=== PATIENT | female | born 1960 | race Caucasian/White ===

== ENCOUNTER 2019-10-30 13:07 | Outpatient (CLI) | payer BC, SELFPAY ==
[2019-10-30 13:44] LABS: Blood Urea Nitrogen 28 mg/dL (7-17); Calcium 9.2 mg/dL (8.4-10.2); Carbon Dioxide 28 mmol/L (22-30); Chloride 100 mmol/L (98-107); Estimated Glomerular Filt Rate > 60; Glucose 110 mg/dL (65-105); Sodium 139 mmol/L (137-145)
== END 2019-10-30 13:08 | disposition home or self-care (01) ==
LOC: ANHSURGERY 13:12
PROVIDERS: Anesthesiology; PCP Internal Medicine; Visit Provider Obstetrics & Gynecology
DX: Z51.81 Encounter for therapeutic drug level monitoring (principal); Z79.899 Other long term (current) drug therapy
CPT/HCPCS: 36415; 80048

== ENCOUNTER 2019-11-08 00:41 | Day surgery (SDC) | payer BC, SELFPAY ==
[2019-10-25 13:05] VITALS: BMI 40.3
--- NOTE | 2019-11-08 09:32 | WPDANESEPPF ---
Anes - Initial Pre Proc Eval Procedure: Operation Date: 11/08/19 13:00 Proposed Procedures p Hysteroscopy, Dilation and Curettage - Walker Saldivar MD Date/Time: 11/08/19 09:32 Surgeon: Walker Saldivar MD Pre Op Diagnosis: Post Menopausal Bleeding Patient Data Age: 59 Gender: F Height: 1.68 m Weight: 113.4 kg Allergies Allergy/AdvReac Type Severity Reaction Status Date / Time bee venom protein (honey bee) Allergy Severe Swelling, Verified 11/08/19 11:28 ITCHING, HYPOTENSION EBONI Inhibitors Allergy Unknown Cough Verified 11/08/19 11:28 APPLES, SOME NUTS, POTATOES, Allergy ITCHY Uncoded 11/08/19 11:28 CARROT THROAT Home Medications Medication Instructions Recorded Confirmed Type epinephrine 0.3 mg/0.3 mL 0.3 mg IM ONCE 08/11/19 10/25/19 History injection, auto-injector amlodipine 2.5 mg PO QPM 10/25/19 10/25/19 History calcium carbonate [Calcium 600] 600 mg PO QPM 10/25/19 10/25/19 History levothyroxine 125 mcg PO QPM 10/25/19 10/25/19 History multivitamin 1 tablet PO QPM 10/25/19 10/25/19 History olmesartan-hydrochlorothiazide 1 tablet PO QPM 10/25/19 10/25/19 History [Benicar HCT] omega 3-omt-qbl-fish oil [Fish Oil] 2 cap PO QPM 10/25/19 10/25/19 History rosuvastatin 20 mg PO QPM 10/25/19 10/25/19 History Patient hx anesthesia problems: none Family hx anesthesia problems: none [facility] Past Medical History Medical History (Updated 08/11/19 @ 11:40 by Niki Weber CMA) Benign essential hypertension BMI 39.0-39.9,adult Encounter for preventive health examination FHx: colon cancer Hearing loss History of angiotensin converting enzyme inhibitor (EBONI-I) allergy Hyperlipidemia Hypothyroidism (acquired) IGT (impaired glucose tolerance) 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 Social History Social History Smoking status: Never smoker Second hand tobacco smoke exposure: No Alcohol intake: never Anes - Eval Final PreProcedure Day of Procedure 11/08/19 09:32 Patient weight: morbidly obese Heart: regular rate and rhythm Lungs: clear to auscultation and normal air movement Airway: Mallampati scale class II Neurological: alert and oriented Last oral intake: >/= 8 hours ASA classification: III Emergent: no Anesthetic plan: proceed Anesthesia type and monitoring: general GIVS and LMA Informed Consent: The patient's anesthetic plan and its attendant risks and benefits were discussed with the patient/family/POA. Questions were solicited and answers provided to the satisfaction of the patient/family/POA.
[2019-11-08 11:08] VITALS: BP 157/92; PULSE 76; RESP 18; TEMP 36.7; O2SAT 100
[2019-11-08] MEDS: LACTATED RINGERS 1,000 ML 30 ML IV CONT (11:30)
--- NOTE | 2019-11-08 13:03 | PM.IMHP ---
H&P: HPI History of Present Illness Chief complaint: Post Menopausal Bleeding Narrative: 59 y/o who had a few episodes of vaginal bleeding starting just before Guille. She has no cramping. Pap was negative in the office. 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 Surgical History Surgical History History of delivery History of eye surgery History of thyroid surgery History of tonsillectomy Status post breast lumpectomy Family History Family History Mother Hypertension Family history of Alzheimer's disease Family history of elevated blood lipids Father Patient's father is Carcinoma of colon Family history of lung cancer Sibling Diabetes mellitus Family history of elevated blood lipids Other Cerebrovascular accident Family history of allergic disorder Family history of cardiovascular disease Family history of osteoporosis Social History Social History Smoking status: Never smoker Second hand tobacco smoke exposure: No Alcohol intake: never Comments Past OB: One , three VBACs. 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 Never took HRT. No history of abnormal pap or STI. Meds Home Medications and Allergies Home Medications Medication Instructions Recorded Confirmed Type epinephrine 0.3 mg/0.3 mL 0.3 mg IM ONCE 08/11/19 10/25/19 History injection, auto-injector amlodipine 2.5 mg PO QPM 10/25/19 10/25/19 History calcium carbonate [Calcium 600] 600 mg PO QPM 10/25/19 10/25/19 History levothyroxine 125 mcg PO QPM 10/25/19 10/25/19 History multivitamin 1 tablet PO QPM 10/25/19 10/25/19 History olmesartan-hydrochlorothiazide 1 tablet PO QPM 10/25/19 10/25/19 History [Benicar HCT] omega 3-utr-vwa-fish oil [Fish Oil] 2 cap PO QPM 10/25/19 10/25/19 History rosuvastatin 20 mg PO QPM 10/25/19 10/25/19 History Allergies Allergy/AdvReac Type Severity Reaction Status Date / Time bee venom protein (honey bee) Allergy Severe Swelling, Verified 11/08/19 11:28 ITCHING, HYPOTENSION EBONI Inhibitors Allergy Unknown Cough Verified 11/08/19 11:28 APPLES, SOME NUTS, POTATOES, Allergy ITCHY Uncoded 11/08/19 11:28 CARROT THROAT Vital Signs Vital Signs - 24 hr 11/08/19 11:08 Temperature 36.7 C Pulse Rate 76 Respiratory Rate 18 Blood Pressure 157/92 H Pulse Oximetry 100 Exam Const: Orientation/consciousness: patient oriented x3 Other: Well-developed, well-nourished female in no acute distress. Neck: Thyroid: thyroid normal Lymphatic: no lymphadenopathy noted (in neck, axilla or inguinal nodes) Resp: Effort & Inspection: normal respiratory effort Auscultation: clear to auscultation bilaterally Cardio: Rate: regular rate Rhythm: regular rhythm Heart sounds: S1 normal heart sound present and S2 normal heart sound present GI: Other: ABD: Soft, nontender, nondistended. No guarding or rebound tenderness. No hepatosplenomegaly. : General: Yes no CVA tenderness Other: External genitalia: normal female hair distribution, without lesion. Urethral meatus: no lesion, non prolapsed. Bladder: no mass, nontender Vagina: atrophic, without lesion or discharge. No cystocele or rectocele. Cervix: no lesion or discharge. Uterus: small, anteverted, freely mobile, nontender Adnexa: no mass or tenderness. Anus/pe
[2019-11-08] MEDS: KETOROLAC 30 MG/ML VIAL (*BKC) IV PUSH (13:44)
--- NOTE | 2019-11-08 13:53 | PM.PROC ---
Procedure Note - Detailed Date of procedure: 11/08/19 Pre-op diagnosis: Post Menopausal Bleeding Post-op diagnosis: same Procedure performed: Hysteroscopy D&C Endometrial polypectomy Description of procedure: The patient was taken to the operating room where she was prepared and draped in the usual sterile fashion in the dorsal lithotomy position. The bladder was drained with a red rubber catheter. A sterile speculum was placed into the vagina. The anterior lip of the cervix was grasped with single-tooth tenaculum. Ten mL of 1% lidocaine was administered in a paracervical block. The cervix was then gently dilated using Hegar dilators until an 8 mm dilator could be passed. Hysteroscopy was performed using sterile saline as a distention medium. Findings are as noted above. A polyp forceps was advanced and several polyps were removed. Sharp curettage was then performed, and endometrial curettings were collected on a Telfa pad and passed off to be sent to pathology. Hemostasis was excellent. Sponge, lap, needle and instrument counts were correct. The patient was awakened and taken to the recovery room in stable condition. I was present and scrubbed through the entire procedure. Implants: None Anesthesia: MAC and local (paracervical block) Surgeon: Walker Saldivar MD Estimated blood loss (mL): 10 Drains: No Packing: No Pathology: yes (Endometrial curettings) Complications: None Disposition: PACU Findings: Multiple large polyps in the endometrial cavity. Both tubal ostia seen.
--- NOTE | 2019-11-08 13:53 | SUR.OPER ---
Hysteroscopy fluid:IVNS:1000CC OUT OF BAG, 1000CC COLLECTED
--- NOTE | 2019-11-08 13:56 | SUR.OPER ---
EBL:10CC
[2019-11-08 14:05] VITALS: BP 131/71; PULSE 75
[2019-11-08 14:35] VITALS: BP 150/81; PULSE 62
--- NOTE | 2019-11-08 14:55 | SUR.PHASEII ---
1450: Contacted Dr. Saldivar to report bleeding. He said he will come and evaluate for himself.
[2019-11-08 15:05] VITALS: BP 159/98; PULSE 64
--- NOTE | 2019-11-08 15:29 | SUR.PHASEII ---
1510 Dr Saldivar came in to evaluate pt; stated she was okay to be discharged
[2019-11-08 15:30] VITALS: BP 150/93; PULSE 63
== END 2019-11-08 15:32 | disposition home or self-care (01) ==
PROVIDERS: PCP Internal Medicine; Visit Provider Obstetrics & Gynecology
PROC: 0U5B8ZZ Destruction of Endometrium, Via Natural or Artificial Opening Endoscopic (ICD-10-PCS; CPT 58563; principal; 2019-11-08 13:00)
DX: C54.1 Malignant neoplasm of endometrium (principal); N95.0 Postmenopausal bleeding; N84.0 Polyp of corpus uteri; I10 Essential (primary) hypertension; E78.5 Hyperlipidemia, unspecified; E03.9 Hypothyroidism, unspecified; R73.02 Impaired glucose tolerance (oral); E66.01 Morbid (severe) obesity due to excess calories; Z68.41 Body mass index [BMI] 40.0-44.9, adult
CPT/HCPCS: 58558; 88305; A9270; J1885; J2250; J2704; J3010; J7030; J7120

== ENCOUNTER 2020-08-07 07:46 | Outpatient (CLI) | payer BC, SELFPAY ==
--- NOTE | ~2020-08-07 | MM_ITS ---
EXAMINATION: MM screening jojo BI w ulices HISTORY: Screening mammogram TECHNIQUE: Craniocaudal and mediolateral oblique 3-D tomosynthesis images were obtained and synthetic 2-D images were generated. Bilateral rotated lateral cc views. CAD analysis was submitted and interp reted. COMPARISON: 12/16/2017 bilateral digital screening mammogram BREAST PARENCHYMAL COMPOSITION: The breasts are heterogeneously dense, which may obscure small masses . FINDINGS: There is a biopsy marker on the left; history of prior bilateral benign breast biopsies. There is a small cluster of grouped microcalcifications in the posterior aspect of the lower outer qu adrant right breast. Diagnostic mammogram with magnification views is recommended. Bilateral mammographic asymmetric densities are noted; bilateral diagnostic mammography compression v iews and bilateral breast ultrasound examination are recommended. IMPRESSION: 1. Right grouped microcalcifications in bilateral mammographic asymmetry densities 2. Recommend bilateral diagnostic mammography and bilateral breast ultrasound examination. BI-RADS Category 0: Incomplete: Needs additional imaging evaluation. Reviewed, dictated and finalized at location A. ODICALS CLERK IMPRESSION: 1. Right grouped microcalcifications in bilateral mammographic asymmetry densit ies 2. Recommend bilateral diagnostic mammography and bilateral breast ultrasound e xamination. BI-RADS Category 0: Incomplete: Needs additional imaging evaluation.
== END 2020-08-07 07:47 | disposition home or self-care (01) ==
LOC: ANHIMG 07:46
PROVIDERS: PCP Internal Medicine; Visit Provider Internal Medicine
DX: Z12.31 Encounter for screening mammogram for malignant neoplasm of breast (principal); R92.8 Other abnormal and inconclusive findings on diagnostic imaging of breast
CPT/HCPCS: 77063; 77067

== ENCOUNTER 2020-09-03 12:28 | Outpatient (CLI) | payer BC, SELFPAY ==
--- NOTE | ~2020-09-03 | MMUS_ITS ---
EXAMINATION: MM diagnostic mammo BI, US breast BI complete HISTORY: Follow-up breast asymmetries and right breast calcifications. TECHNIQUE: Additional 3-D tomosynthesis images of the breasts were performed and synthetic 2-D images were generated. CAD analysis was submitted and interpreted. High resolution bilateral complete breas t ultrasound was performed. COMPARISON: 09/03/2020 BREAST PARENCHYMAL COMPOSITION: The breasts are heterogenously dense, which may obscure small masses. FINDINGS: MAMMOGRAPHIC FINDINGS: There are multiple partially circumscribed masses in both breasts which are partially obscured by fib roglandular tissue there is a cluster of indeterminate calcifications in the mid outer aspect of the right breast.. ULTRASOUND: Right breast ultrasound: There are multiple simple and complicated cysts of the right breast. At 9:00, 6 cm from the nipple, t here is an oval circumscribed hypoechoic mass with parallel orientation, posterior acoustic enhanceme nt and no internal vascularity measuring 10 x 6 x 8 mm, likely benign. At 8:00, 7 cm from the nipple, there is an oval circumscribed hypoechoic mass with slightly heterogeneous internal echotexture. No internal vascularity or posterior features. This mass measures 6 mm maximum dimension. There is a clu ster of cysts at 10:00, 5 cm from the nipple. Left breast ultrasound: At 12:00, 2 cm from the nipple there is a 9 mm oval circumscribed hypoechoic mass with posterior acou stic enhancement, parallel orientation, likely a complicated cyst. At 12:00, 2 cm from the nipple, th ere is a slightly irregular shaped hypoechoic mass measuring 5 x 4 x 4 mm with low-level internal ech oes, posterior acoustic enhancement and no internal vascularity, likely a complicated cyst. At 12:00, 2 cm from the nipple, there is a slightly lobulated hypoechoic mass with echogenic hilum measuring 7 mm maximum dimension, likely an intramammary lymph node. There are additional simple and complicated cysts scattered throughout the left breast. At 2:00, 2 cm from the nipple, there is a slightly irreg ular shaped hypoechoic mass measuring 6 x 5 x 4 mm without posterior features or internal vascularity . At 5:00, 4 cm from the nipple, there is a heterogeneous mass with echogenic hilum measuring 8 mm, l ikely an intramammary lymph node. At 5:00, 2 cm from the nipple, there is an irregular shaped hypoech oic mass with lobulated margins measuring 9 mm maximum dimension. No internal vascularity. IMPRESSION: 1. Abnormal masses of the left breast at 2:00, 2 cm from the nipple and 5:00, 2 cm from the nipple wi th irregular margins. 2. Ultrasound-guided biopsy of left breast lesions described above recommended. 3: Additional likely benign masses are identified in both breasts for which short-term follow-up ultr asound and mammogram is recommended in 6 months. BI-RADS category 4, suspicious findings. Reviewed, dictated and finalized at location A. ICULTURIST IMPRESSION: 1. Abnormal masses of the left breast at 2:00, 2 cm from the nipple and 5:00, 2 cm from the nipple with irregular margins. 2. Ultrasound-guided biopsy of left breast lesions described above recommended. 3: Additional likely benign masses are identified in both breasts for which [facility] rt-term follow-up ultrasound and mammogram is recommended in 6 months. BI-RADS category 4, suspicious findings.
== END 2020-09-03 12:29 | disposition home or self-care (01) ==
PROVIDERS: PCP Internal Medicine; Visit Provider Internal Medicine
DX: R92.8 Other abnormal and inconclusive findings on diagnostic imaging of breast (principal)
CPT/HCPCS: 76641; 77066

== ENCOUNTER 2020-09-17 10:11 | Outpatient (CLI) | payer BC, SELFPAY ==
--- NOTE | ~2020-09-17 | US_ITS ---
US breast LT limited 09/17/2020 12:21 Indication: Left breast masses seen on recent examination. Biopsy recommended. Procedure: High-resolution Limited left breast ultrasound Comparison: 09/03/2020 Findings: At 5:00, 2 cm from the nipple there is a slightly lobulated mass measuring up to 1.0 cm max imum dimension which with real-time examination looks like a cluster of benign microcysts, likely neyda ign. At 2:00, 2 cm from the nipple there is an 8 mm cyst with a smaller cyst adjacent to it along the anterior margin which gives a lobulated appearance. This is benign. Impression: 1: Probable benign simple and complicated cysts of the left breast at 2 and 5:00 o'clock. Short-term follow-up 6 month interval left breast ultrasound recommended to assess stability. BI-RADS CATEGORY 3-PROBABLY BENIGN FINDING RECOMMENDATION: 6 month follow up recommended. Reviewed, dictated and finalized at location A. DRAFTER Impression: 1: Probable benign simple and complicated cysts of the left breast at 2 and 5:0 0 o'clock. Short-term follow-up 6 month interval left breast ultrasound recomme nded to assess stability. BI-RADS CATEGORY 3-PROBABLY BENIGN FINDING RECOMMENDATION: 6 month follow up recommended.
--- NOTE | ~2020-09-17 | MM_ITS ---
MM post biopsy diagnostic RT, MM stereotactic specimen RT, MM stereotactic bx RT EXAMINATION: MM post biopsy diagnostic RT, MM stereotactic specimen RT, MM stereotactic bx RT DATE: Dylan Mobley M.D. INDICATION: Abnormal calcifications in the right breast. Stereotactic core biopsy is requested evalu ate for malignancy.] TECHNIQUE AND FINDINGS: The risks and potential benefits of the procedure were discussed with the patient and written informe d consent was obtained. The patient was placed in the prone position clustered at the table with the right breast in craniocaudal compression, and the area of interest was localized and targeted utiliz ing digital imaging with stereotaxis. After sterile preparation of the skin, 1% lidocaine was utilized for local anesthesia at the skin pun cture site and 1% lidocaine with epinephrine was utilized for deeper local anesthesia/is about the bi opsy site. A 9G MagicEvent vacuum assisted biopsy needle was advanced to the level of the calcification o f interest from a cephalad approach utilizing stereotactic guidance and a total of 6 tissue core biop sies were obtained. A specimen radiograph demonstrates that the calcifications of interest are included within the tissue cores. A tissue marker clip was then placed at the biopsy site. The needle was removed and hemosta sis was achieved. The patient tolerated the procedure well and there is no evidence of significant i mmediate complication. The patient was given verbal as well as written postprocedural instructions p rior to discharge from the department. Tissue cores were submitted to surgical pathology for histolo gic analysis. A 2-view right unilateral digital mammogram was obtained post procedure and this demonstrates that th e tissue marker clip is in expected position.] IMPRESSION: 1. Successful stereotactic biopsy of calcifications in the mid outer aspect of the right breast, fol lowed by tissue marker clip placement. Please refer to pathology report for histologic analysis. Reviewed, dictated and finalized at location A. STANT TRACK COACH IMPRESSION: 1. Successful stereotactic biopsy of calcifications in the mid outer aspect of the right breast, followed by tissue marker clip placement. Please refer to p athology report for histologic analysis. IMPRESSION: 1. Successful stereotactic biopsy of calcifications in the mid outer aspect of the right breast, followed by tissue marker clip placement. Please refer to p athology report for histologic analysis.
== END 2020-09-17 10:12 | disposition home or self-care (01) ==
PROVIDERS: PCP Internal Medicine; Visit Provider Surgery
DX: R92.8 Other abnormal and inconclusive findings on diagnostic imaging of breast (principal)
CPT/HCPCS: 19081; 76642; 77065; 88305; A4648

== ENCOUNTER 2021-04-24 11:55 | Outpatient (CLI) | payer BC, SELFPAY ==
--- NOTE | ~2021-04-24 | MMUS_ITS ---
EXAMINATION: MM diagnostic jojo BI w ulices, US breast LT limited HISTORY: Six-month follow-up for probably benign left breast masses TECHNIQUE: Craniocaudal, mediolateral, and mediolateral oblique 3-D tomosynthesis images of the breas ts were performed and synthetic 2-D images were generated. CAD analysis was submitted and interpreted . High resolution limited left breast ultrasound was performed. COMPARISON: 09/17/2020, 09/03/2020, 08/07/2020, 12/16/2017 BREAST PARENCHYMAL COMPOSITION: The breasts are heterogeneously dense, which may obscure small masses . FINDINGS: MAMMOGRAPHIC FINDINGS: There is no evidence of suspicious mass, calcification, or architectural distortion in either breast malignancy. There has been no suspicious interval change. ULTRASOUND: The previously described masses at the 2:00 and 5:00 locations in the left breast demonstrate interva l decrease in size, consistent with benign findings. No suspicious cystic or solid mass is identified . IMPRESSION: 1. No mammographic or sonographic evidence of malignancy. 2. Recommend routine screening mammography in one year. BI-RADS Category 2: Benign finding(s). Reviewed, dictated and finalized at location A. IMPRESSION: 1. No mammographic or sonographic evidence of malignancy. 2. Recommend routine screening mammography in one year. BI-RADS Category 2: Benign finding(s).
== END 2021-04-24 11:56 | disposition home or self-care (01) ==
LOC: ANHIMG 11:57
PROVIDERS: PCP Internal Medicine; Visit Provider Surgery
DX: R92.8 Other abnormal and inconclusive findings on diagnostic imaging of breast (principal)
CPT/HCPCS: 76642; 77062; 77066; G0279

== ENCOUNTER 2021-04-30 00:49 | Day surgery (SDC) | payer BC, SELFPAY ==
[2021-04-21 14:20] VITALS: BMI 42.0
[2021-04-30 07:43] VITALS: BP 135/83; PULSE 91; RESP 20; TEMP 35.9; O2SAT 100; BMI 42.3
--- NOTE | 2021-04-30 07:46 | WPDANESEPPF ---
Anes - Initial Pre Proc Eval Procedure: Operation Date: 04/30/21 08:30 Proposed Procedures p Screening Colonoscopy - Tone Stringer MD Date/Time: 04/30/21 07:46 Surgeon: Tone Stringer MD Pre Op Diagnosis: family hx of colon ca Patient Data Age: 60 Gender: F Height: 1.68 m Weight: 119 kg Last Vital Signs Temp 35.9 C L 04/30/21 07:43 Pulse 91 04/30/21 07:43 Resp 20 04/30/21 07:43 BP 135/83 04/30/21 07:43 Pulse Ox 100 04/30/21 07:43 Allergies Allergy/AdvReac Type Severity Reaction Status Date / Time bee venom protein (honey bee) Allergy Severe Swelling, Verified 04/30/21 07:42 ITCHING, HYPOTENSION EBONI Inhibitors AdvReac Unknown Cough Verified 04/30/21 07:42 APPLES, SOME NUTS, POTATOES, Allergy ITCHY Uncoded 04/30/21 07:42 CARROT THROAT Home Medications Medication Instructions Recorded Confirmed Type calcium carbonate [Calcium 600] 600 mg PO QPM 10/25/19 04/21/21 History multivitamin 1 tablet PO QPM 10/25/19 04/21/21 History omega 6-llh-jym-fish oil [Fish Oil] 2 cap PO QPM 10/25/19 04/21/21 History amlodipine 5 mg tablet 2.5 mg PO QPM #90 tablet 10/08/20 04/21/21 Rx levothyroxine 125 mcg tablet 125 mcg PO DAILY #90 tablet 10/08/20 04/21/21 Rx olmesartan 40 1 tablet PO QPM #90 tablet 10/08/20 04/21/21 Rx mg-hydrochlorothiazide 12.5 mg tablet rosuvastatin 20 mg tablet 20 mg PO QPM #90 tablet 10/08/20 04/21/21 Rx epinephrine 0.3 mg/0.3 mL 0.3 mg IM ONCE #2 ea 01/28/21 04/21/21 Rx injection, auto-injector Patient hx anesthesia problems: none Family hx anesthesia problems: none PMFSH Past Medical History Medical History (Updated 04/30/21 @ 08:02 by Rupert Simental DO) Abnormal finding of blood chemistry Allergy to EBONI inhibitors Benign essential hypertension BMI 39.0-39.9,adult Body mass index (BMI) 40.0-44.9, adult Breast mass seen on mammogram Colon cancer screening Encounter for preventive health examination Encounter for routine adult health examination without abnormal findings Exposure to COVID-19 virus FHx: colon cancer H/O bee sting allergy Hearing loss History of angiotensin converting enzyme inhibitor (EBONI-I) allergy History of benign breast biopsy History of uterine cancer Hyperlipidemia Hypothyroidism (acquired) IGT (impaired glucose tolerance) Need for shingles vaccine 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 PATRICK (obstructive sleep apnea) Uterine cancer Surgical History Surgical History History of ankle surgery History of delivery History of eye surgery History of hysterectomy History of thyroid surgery History of tonsillectomy Status post breast lumpectomy left breast Family History Family History Mother Hypertension Family history of Alzheimer's disease Family history of elevated blood lipids Father Patient's father is Carcinoma of colon Family history of lung cancer Sibling Diabetes mellitus Family history of elevated blood lipids Grandparent Heart disease Cerebrovascular accident Other Family history of allergic disorder Family history of cardiovascular disease Family history of osteoporosis Social History Social History Smoking status: Never smoker Second hand tobacco smoke exposure: No Alcohol intake: current Alcohol use details: rare Living arrangements: with family 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
--- NOTE | 2021-04-30 07:56 | WPDGICN ---
Assessment and Plan Assessment and plan (1) Colon cancer screening: Code(s): Z12.11 - Encounter for screening for malignant neoplasm of colon Status: Acute (2) Family history of colon cancer in father: Code(s): Z80.0 - Family history of malignant neoplasm of digestive organs Status: Acute Assessment and Plan: Patient's father has had colon cancer. For this reasons surveillance colonoscopy suggested at 5 year intervals. Because of her fecal urgency would advise fiber supplementation hopefully to bulk up her stool sounds. Further recommendations may be given after endoscopy. GI Consult Note Consult date/time: 04/30/21 07:57 HPI: Ronaldo Bolton is a 60 year old female Presents for screening colonoscopy. Her last exam was in 2014. Patient reports that her current weight appetite and bowel movements are normal. She denies any blood in her stools. Family history is significant that her father had colon cancer. Patient reports having had uterine cancer several years ago. She does notice some urgency with bowel movements. Subsequently. Review of Systems Review of Systems: All systems reviewed & are unremarkable except as noted in HPI and below PMFSH Past Medical History Medical History Abnormal finding of blood chemistry Allergy to EBONI inhibitors Benign essential hypertension BMI 39.0-39.9,adult Body mass index (BMI) 40.0-44.9, adult Breast mass seen on mammogram Colon cancer screening Encounter for preventive health examination Encounter for routine adult health examination without abnormal findings Exposure to COVID-19 virus FHx: colon cancer H/O bee sting allergy Hearing loss History of angiotensin converting enzyme inhibitor (EBONI-I) allergy History of benign breast biopsy History of uterine cancer Hyperlipidemia Hypothyroidism (acquired) IGT (impaired glucose tolerance) Need for shingles vaccine On detention drug therapy Uterine cancer Surgical History Surgical History History of ankle surgery History of delivery History of eye surgery History of hysterectomy History of thyroid surgery History of tonsillectomy Status post breast lumpectomy left breast Family History Family History Mother Hypertension Family history of Alzheimer's disease Family history of elevated blood lipids Father Patient's father is Carcinoma of colon Family history of lung cancer Sibling Diabetes mellitus Family history of elevated blood lipids Grandparent Heart disease Cerebrovascular accident Other Family history of allergic disorder Family history of cardiovascular disease Family history of osteoporosis Social History Social History Smoking status: Never smoker Second hand tobacco smoke exposure: No Alcohol intake: current Alcohol use details: rare Living arrangements: with family 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 Spiritual care concerns: No Meds Home Medications and Allergies Home Medications Medication Instructions Recorded Confirmed Type calcium carbonate [Calcium 600] 600 mg PO QPM 10/25/19 04/21/21 History multivitamin 1 tablet PO QPM 10/25/19 04/21/21 History omega 4-vjo-wst-fish oil [Fish Oil] 2 cap PO QPM 10/25/19 04/21/21 History amlodipine 5 mg tablet 2.5 mg PO QPM #90 tablet 10/08/20 04/21/21 Rx levothyroxine 125 mcg tablet 125 mcg PO DAILY #90 tablet 10/08/20 04/21/21 Rx olmesartan 40 1 tablet PO QPM #90 tablet 10/08/20 04/21/21 Rx mg-hydrochlorothiazide 12.5 mg tablet rosuvastatin 20 mg tablet 20 mg PO QPM #90 tablet 10/08/20 04/21/21 Rx epinephrine 0.3 mg/0.3 mL 0.3 mg IM ONCE #2 ea 01/28/21 04/21/21 Rx injection, auto-injector Allergies Allergy/Adv
[2021-04-30] MEDS: LACTATED RINGERS 1,000 ML 150 ML IV CONT (07:59)
[2021-04-30] MEDS: SIMETHICONE ORAL SUSPENSION 20 MG/0.3 ML 30 ML BOTTLE 0.6 ML IRRIGATION (08:42)
[2021-04-30 08:52] VITALS: BP 105/64; PULSE 71; RESP 20; O2SAT 100
[2021-04-30 09:02] VITALS: BP 113/67; PULSE 74; RESP 16; O2SAT 100
[2021-04-30 09:12] VITALS: BP 118/68; PULSE 73; RESP 19; O2SAT 100
== END 2021-04-30 09:24 | disposition home or self-care (01) ==
PROVIDERS: PCP Internal Medicine; Visit Provider Internal Medicine Gastroenterology
PROC: 0DJD8ZZ Inspection of Lower Intestinal Tract, Via Natural or Artificial Opening Endoscopic (ICD-10-PCS; CPT 45378; principal; 2021-04-30 08:30)
DX: Z12.11 Encounter for screening for malignant neoplasm of colon (principal); Z80.0 Family history of malignant neoplasm of digestive organs; K64.8 Other hemorrhoids; K57.30 Diverticulosis of large intestine without perforation or abscess without bleeding; I10 Essential (primary) hypertension; Z85.42 Personal history of malignant neoplasm of other parts of uterus; E78.5 Hyperlipidemia, unspecified; E03.9 Hypothyroidism, unspecified; E66.9 Obesity, unspecified; Z68.41 Body mass index [BMI] 40.0-44.9, adult
CPT/HCPCS: 45378; J2001; J2704; J7120

== ENCOUNTER 2021-12-29 11:10 | Outpatient (CLI) | payer BC, SELFPAY ==
[2021-12-29 11:36] LABS: Alanine Aminotransferase 37 U/L (4-35); Albumin Level 4.2 g/dL (3.5-5.1); Alkaline Phosphatase 55 U/L (38-126); Anion Gap 8 mmol/L (8-16); Aspartate Amino Transferase 35 U/L (14-36); Bilirubin,Total 0.8 mg/dL (0.2-1.3); Blood Urea Nitrogen 21 mg/dL (7-17); Calcium 9.1 mg/dL (8.4-10.2); Carbon Dioxide 27 mmol/L (22-30); Chloride 104 mmol/L (98-107); Cholesterol 125 mg/dL (0-200); Estimated Glomerular Filt Rate > 60; Glucose 113 mg/dL (65-110); HDL Direct 41 mg/dL; Potassium 4.3 mmol/L (3.4-5.0); Sodium 139 mmol/L (137-145); Triglycerides 77 mg/dL (<150)
[2021-12-29 11:47] LABS: LDL Cholesterol Direct 57 mg/dL
[2021-12-29 11:54] LABS: Hemoglobin A1C 5.7 % (<5.7)
[2021-12-31 14:31] LABS: C-Peptide 2.51 ng/mL (0.80-3.85)
[2022-01-01 06:11] LABS: Insulin Level Total 14.7 uIU/mL (<=19.6)
== END 2021-12-29 11:11 | disposition home or self-care (01) ==
PROVIDERS: PCP Internal Medicine; Visit Provider Internal Medicine
DX: R73.02 Impaired glucose tolerance (oral) (principal); Z79.899 Other long term (current) drug therapy; Z68.41 Body mass index [BMI] 40.0-44.9, adult; I10 Essential (primary) hypertension; E78.2 Mixed hyperlipidemia
CPT/HCPCS: 36415; 80053; 80061; 83036; 83525; 84681

== ENCOUNTER 2022-04-05 15:35 | Emergency (ER) | payer BC, SELFPAY ==
--- NOTE | 2022-04-05 15:37 | ED.WOUNDLAC ---
HPI - Wound/Laceration General Chief Complaint: Wound/Laceration Stated Complaint: CHIN LACERATION Time Seen by Provider: 04/05/22 15:50 Source: patient and RN notes reviewed Mode of arrival: ambulatory Limitations: no limitations History of Present Illness HPI narrative: 61-year-old female presents with concern for laceration to her chin. She reports just prior to arrival she tripped, fell and hit her chin on a concrete curb. She denies tooth pain, loose teeth. She reports mild jaw pain. She denies difficulty opening or closing her mouth. Location: face Related Data Home Medications Medication Instructions Recorded Confirmed calcium carbonate 600 mg calcium 600 mg PO QPM 10/25/19 01/02/22 (1,500 mg) tablet (Calcium) multivitamin 1 tablet PO QPM 10/25/19 01/02/22 omega 7-gpv-syt-fish oil 1,000 mg 2 cap PO QPM 10/25/19 01/02/22 (120 mg-180 mg) capsule (Fish Oil) calcium polycarbophil 625 mg 1,250 mg PO BID 06/16/21 01/02/22 tablet (FiberCon) Allergies Allergy/AdvReac Type Severity Reaction Status Date / Time bee venom protein (honey bee) Allergy Severe Swelling, Verified 04/05/22 15:41 ITCHING, HYPOTENSION EBONI Inhibitors AdvReac Unknown Cough Verified 04/05/22 15:41 APPLES, SOME NUTS, POTATOES, Allergy ITCHY Uncoded 04/05/22 15:41 CARROT THROAT Review of Systems Review of Systems: CONSTITUTIONAL: Denies malaise, chills, sweats, or fever. SKIN: Reports laceration to her chin MUSCULOSKELETAL: Denies muscle skeletal pain NEUROLOGIC: Denies numbness, weakness All systems reviewed & are unremarkable except as noted in HPI and below PMFSH Past Medical History Medical History (Updated 04/05/22 @ 16:03 by Jessica Ny NP) Abnormal finding of blood chemistry Allergy to EBONI inhibitors Benign essential hypertension BMI 39.0-39.9,adult Body mass index (BMI) 40.0-44.9, adult Breast cancer screening Breast mass seen on mammogram Colon cancer screening Encounter for preventive health examination Encounter for routine adult health examination without abnormal findings Exposure to COVID-19 virus FHx: colon cancer Fibrocystic changes of left breast H/O bee sting allergy Hearing loss History of angiotensin converting enzyme inhibitor (EBONI-I) allergy History of benign breast biopsy History of uterine cancer Hyperlipidemia Hypothyroidism (acquired) IGT (impaired glucose tolerance) Left breast mass Need for shingles vaccine 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 PATRICK (obstructive sleep apnea) Post-menopausal Post-surgical hypothyroidism Pre-diabetes Seborrheic keratosis Skin tags, multiple acquired Uterine cancer Vitamin D deficiency Surgical History Surgical History History of ankle surgery History of delivery History of eye surgery History of hysterectomy History of thyroid surgery History of tonsillectomy Status post breast lumpectomy left breast Family History Family History Mother Hypertension Family history of Alzheimer's disease Family history of elevated blood lipids Father Patient's father is Carcinoma of colon Family history of lung cancer Sibling Diabetes mellitus Family history of elevated blood lipids Grandparent Heart disease Cerebrovascular accident Other Family history of allergic disorder Family history of cardiovascular disease Family history of osteoporosis Social History Social History Smoking status: Never smoker Second hand tobacco smoke exposure: No Alcohol intake: current Alcohol use details: rare 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 There is no relevant family history pertinent to the presenting complaint
[2022-04-05 15:42] VITALS: BP 130/102; PULSE 82; RESP 16; TEMP 36.3; O2SAT 100
[2022-04-05] MEDS: TETANUS,DIPHTHERIA,AC PERTUSSIS ADULT (0.5 ML) BOOSTRIX IM (16:56)
--- NOTE | 2022-04-05 17:11 | PC.NURSE ---
1615 pt left without having Tdap ordered; 1640 pt contacted to return for Tdap. 1650 pt returned to facility for injection. [address] [facility] information sheet on Tdap, injection given. 1710 pt left facility without adverse reaction noted. No new discharge instructions given.
== END 2022-04-05 17:10 | disposition home or self-care (01) ==
PROVIDERS: Emergency Provider Nurse Practitioner; PCP Internal Medicine
DX: S01.81XA Laceration without foreign body of other part of head, initial encounter (principal); W01.198A Fall on same level from slipping, tripping and stumbling with subsequent striking against other object, initial encounter; Z23 Encounter for immunization; I10 Essential (primary) hypertension; E78.5 Hyperlipidemia, unspecified; E03.9 Hypothyroidism, unspecified; G47.33 Obstructive sleep apnea (adult) (pediatric); R73.03 Prediabetes; Z85.42 Personal history of malignant neoplasm of other parts of uterus
CPT/HCPCS: 12011; 90471; 90715; 99212; G0463

== ENCOUNTER 2022-05-13 10:02 | Outpatient (CLI) | payer BC, SELFPAY ==
[2022-05-13 19:06] LABS: Basophils Percent Auto 0.6 % (0.2-1.2); Eosinophils Absolute Auto 0.1 K/mm3 (0-0.3); Eosinophils Percent Auto 1.2 % (0-4.4); Hematocrit 43.5 % (37.0-47.0); Hemoglobin 14.1 g/dL (12.0-15.0); Immature Granulocyte Absolute 0.01 K/mm3 (0.00-0.031); Immature Granulocyte Percent A 0.1 % (0-0.5); Lymphocytes Absolute Auto 3.82 K/mm3 (0.9-3.2); Mean Corpuscular HGB Conc 32.4 g/dl (32-36); Mean Corpuscular Hemoglobin 30.9 pg (26-34); Mean Corpuscular Volume 95.4 fl (80-100); Mean Platelet Volume 11.5 fl (7.4-10.4); Monocytes Absolute Auto 0.6 K/mm3 (0.1-0.6); Monocytes Percent Auto 8.5 % (2.6-8.5); Neutrophils Absolute Auto 2.6 K/mm3 (1.3-6.7); Neutrophils Percent Auto 36.6 % (45.5-73.1); Platelet Count Result 171 k/mm3 (150-375); Red Blood Count 4.56 M/mm3 (4.2-5.4); Red Cell Distribution Width 13.1 % (11.5-14.5); White Blood Count 7.2 K/mm3 (4.5-10.0)
[2022-05-13 19:14] LABS: Appearance Urine Slightly Cloudy (Clear); Bilirubin Urine Negative (Negative); Blood Urine Negative (Negative); Glucose Urine UA Negative (Negative); Ketones Urine Negative (Negative); Leukocyte Esterase Ur Trace LEU/UL (Negative); Nitrate Urine Negative (Negative); Protein Urine Negative (Negative); Specific Grav Ur 1.015 (1.001-1.035); Urobilinogen Urine 0.2 mg/dL (<2.0)
[2022-05-13 19:21] LABS: Alanine Aminotransferase 39 U/L (6-35); Albumin Level 4.2 g/dL (3.5-5.1); Alkaline Phosphatase 54 U/L (38-126); Anion Gap 11 mmol/L (8-16); Aspartate Amino Transferase 39 U/L (14-36); Bilirubin,Total 0.8 mg/dL (0.2-1.3); Blood Urea Nitrogen 25 mg/dL (7-17); Calcium 9.3 mg/dL (8.4-10.2); Carbon Dioxide 24 mmol/L (22-30); Chloride 103 mmol/L (98-107); Cholesterol 120 mg/dL (0-200); Estimated Glomerular Filt Rate > 60; Glucose 102 mg/dL (65-110); HDL Direct 41 mg/dL; Potassium 3.8 mmol/L (3.4-5.0); Sodium 138 mmol/L (137-145); Triglycerides 71 mg/dL (<150)
[2022-05-13 19:25] LABS: Bacteria Urine Trace /hpf; RBC Urine 0-2 /hpf (0-2); Squamous Epithelial Cell Urine Occasional /hpf (Few)
[2022-05-13 19:35] LABS: Add Urine Microscopic? YES; Color Urine Light Yellow (Yellow); Free T4 Free Thyroxine 1.39 ng/mL (0.78-2.19); Vitamin D 25 Hydroxy 45.7 ng/mL
[2022-05-13 19:40] LABS: LDL Cholesterol Direct 49 mg/dL
[2022-05-13 20:06] LABS: Hemoglobin A1C 5.7 % (<5.7)
== END 2022-05-13 10:03 | disposition home or self-care (01) ==
LOC: ANHGOSHLAB 10:05
PROVIDERS: PCP Internal Medicine; Visit Provider Internal Medicine
DX: E78.2 Mixed hyperlipidemia (principal); R73.03 Prediabetes; R73.02 Impaired glucose tolerance (oral); I10 Essential (primary) hypertension; E03.9 Hypothyroidism, unspecified; E55.9 Vitamin D deficiency, unspecified; Z79.899 Other long term (current) drug therapy
CPT/HCPCS: 36415; 80053; 80061; 81001; 82306; 83036; 84439; 84443; 85025

== ENCOUNTER 2022-06-22 10:16 | Outpatient (CLI) | payer BC, SELFPAY ==
--- NOTE | ~2022-06-22 | MM_ITS ---
EXAMINATION: MM screening [facility]jo BI w ulices HISTORY: Screening TECHNIQUE: Craniocaudal and mediolateral oblique 3-D tomosynthesis images were obtained and synthetic 2-D images were generated. CAD analysis was submitted and interpreted. COMPARISON: Comparison to multiple prior studies sequentially, with oldest reviewed study dated 10/2019. BREAST PARENCHYMAL COMPOSITION: The breasts are heterogeneously dense, which may obscure small masses FINDINGS: Bilateral breast asymmetries are stable. There is no evidence of suspicious mass, calcifica tion, or architectural distortion to suggest malignancy in either breast. There has been no suspiciou s interval change. IMPRESSION: 1. No mammographic evidence of malignancy. 2. Recommend routine screening mammography in one year. BI-RADS Category 2: Benign finding(s). Reviewed, dictated and finalized at location A.
== END 2022-06-22 10:17 | disposition home or self-care (01) ==
LOC: ANHIMG 10:19
PROVIDERS: PCP Internal Medicine; Visit Provider Surgery
DX: Z12.31 Encounter for screening mammogram for malignant neoplasm of breast (principal)
CPT/HCPCS: 77063; 77067

== ENCOUNTER 2022-08-13 08:05 | Outpatient (CLI) | payer BC, SELFPAY ==
--- NOTE | ~2022-08-13 | DEXA_ITS ---
Bone Density Report Name: YUDITH HARVEY Age: 62 Sex: Female Ethnicity: White Date of : 1960 Indication: postmenopausal; screening for osteoporosis; cancer; hysterectomy; Referring Provider: RENATE CHAUHAN Study: Bone densitometry was performed. Exam Date: August 13, 2022 Accession number: [id number] Bone Density: Region BMD T-score Z-score Classification AP Spine(L1-L4) 0.958 -0.8 0.9 Normal Femoral Neck (Left) 0.811 -0.3 1.1 Normal Total Hip (Left) 0.949 0.1 1.2 Normal Femoral Neck (Right) 0.871 0.2 1.7 Normal Total Hip (Right) 0.970 0.2 1.4 Normal Total Hip Mean 0.959 0.2 1.3 Normal World Health Organization criteria for BMD impression classify patients as: Normal (T-score at or above -1.0), Osteopenia (T-score between -1.0 and -2.5), or Osteoporosis (T-score at or below -2.5). 10-year Fracture Risk: FRAX not reported because: All T-scores for Spine Total, Hip Total, Femoral Neck at or above -1.0 Clinical Information Provided by Patient: Has used the following medications: Vitamin D, Calcium Has the following medical conditions: Cancer, Hysterectomy Patient maximum height was 67 Menopause Age: 48 Onset of menses at age 11 Number of children 4 Impression: The patient has normal bone mass. Discussion: BONE DENSITY IS ABOVE THE MINIMUM DESIRABLE LEVEL AT ALL SKELETAL SITES TESTED. This patient?s bone mineral density is above the minimum desirable level (T-score -1.0 or better) at all sites measured. The patient should follow a healthful lifestyle (good nutrition with adequate calcium and vitamin D, and appropriate weight-bearing exercise). Follow-Up: Consider repeating this study in 5 years or sooner if there is some new clinical indication. Reported by: [facility] on 08/13/2022 8:26:00 AM. Reviewed, dictated and finalized at location ASelwyn KHALIL
== END 2022-08-13 08:06 | disposition home or self-care (01) ==
LOC: ANHIMG 08:06
PROVIDERS: PCP Internal Medicine; Visit Provider Internal Medicine
DX: Z78.0 Asymptomatic menopausal state (principal)
CPT/HCPCS: 77080

== ENCOUNTER 2022-10-08 11:10 | Outpatient (CLI) | payer BC, SELFPAY ==
[2022-10-08 21:15] LABS: Alanine Aminotransferase 34 U/L (6-35); Albumin Level 4.2 g/dL (3.5-5.1); Alkaline Phosphatase 55 U/L (38-126); Anion Gap 6 mmol/L (8-16); Aspartate Amino Transferase 40 U/L (14-36); Blood Urea Nitrogen 20 mg/dL (7-17); Carbon Dioxide 29 mmol/L (22-30); Chloride 103 mmol/L (98-107); Cholesterol 123 mg/dL (0-200); Estimated Glomerular Filt Rate > 60; Glucose 104 mg/dL (65-110); HDL Direct 40 mg/dL; Sodium 138 mmol/L (137-145); Triglycerides 84 mg/dL (<150)
[2022-10-08 21:26] LABS: LDL Cholesterol Direct 55 mg/dL
[2022-10-08 22:12] LABS: Hemoglobin A1C 5.7 % (<5.7)
== END 2022-10-08 11:11 | disposition home or self-care (01) ==
LOC: ANHGOSHLAB 11:12
PROVIDERS: PCP Internal Medicine; Visit Provider Internal Medicine
DX: R73.03 Prediabetes (principal); I10 Essential (primary) hypertension; E78.2 Mixed hyperlipidemia
CPT/HCPCS: 36415; 80053; 80061; 83036

== ENCOUNTER 2022-10-20 09:03 | Outpatient (CLI) | payer BC, SELFPAY ==
--- NOTE | ~2022-10-20 | XR_ITS ---
XR hip LT min 2V DATE: 10/20/2022 09:30 INDICATION: Jefferson pop, with subsequent pain TECHNIQUE: AP and lateral views COMPARISON: None FINDINGS: No fracture or dislocation, periosteal reaction or bone destruction. Mild left hip degene rative change. No avascular necrosis or bone destruction. Osteitis pubis. IMPRESSION: Mild left hip osteoarthritis Osteitis pubis. Reviewed, dictated and finalized at location A. LEAD APPLICATION TESTING
--- NOTE | ~2022-10-20 | XR_ITS ---
EXAMINATION: XR knee LT min 4V DATE: 10/20/2022 09:30 INDICATION: Left knee pain TECHNIQUE: Four views of the left knee were obtained. COMPARISON: None. FINDINGS: Alignment is normal. A triangular heterotopic ossification seen along the lateral margin of the patella on the sunrise view. There is moderate tricompartmental osteoarthritis. No joint effusio n/synovitis. Soft tissues are unremarkable. IMPRESSION: 1. Heterotopic ossification along the lateral margin of patella which could reflect an enthesophyte v ersus avulsion. Correlate for tenderness at this site. Reviewed, dictated and finalized at location L. DRAFTER IMPRESSION: 1. Heterotopic ossification along the lateral margin of patella which could ref lect an enthesophyte versus avulsion. Correlate for tenderness at this site.
== END 2022-10-20 09:04 | disposition home or self-care (01) ==
PROVIDERS: PCP Internal Medicine; Visit Provider Internal Medicine
DX: M16.12 Unilateral primary osteoarthritis, left hip (principal); M86.9 Osteomyelitis, unspecified; M61.562 Other ossification of muscle, left lower leg
CPT/HCPCS: 73502; 73564

== ENCOUNTER 2023-01-07 08:00 | Outpatient (RCR) | payer BC, SELFPAY ==
--- NOTE | 2022-12-08 16:53 | PTOPEVAL1 ---
Assessment and note entered by Stef Barroso, PT, DPT Evaluation Information Assessment Status Evaluation Diagnosis L hip and knee pain Onset 1 month Subjective Information Pt states about 2 months ago she was doing yard work and her L hip popped and was sore for a few days but this is doing better now. She states a few days after she was going up the stairs when she felt like her knee gave out. She states she has arthritis in both knees and likely both hips. She states she would like to go to the gym to focus on weight loss and LE strength but in not sure where to start and has a fear of hurting herself. Reported Pain Level Pain Score 0,0: Self Report Assessment PT Clinical Summary Ronaldo presents to therapy today for her initial evaluation with a diagnosis of L hip and L knee pain. Today she reports no L hip pain in the last month and states her L knee is mild. She demonstrates fair strength of her BLEs. She demonstrates significantly flattened feet with no arches. She ambulates with increased lateral pelvic motion. Skilled physical therapy services are indicated to improve LE strength, ambulation, functional mobility, and to return to baseline function. Plan of Care Interventions Electrical Stimulation,Gait Training,Hot Pack/Cold Pack,Manual Therapy,Neuro Re-education,Patient/ Caregiver Educati,Therapeutic Activities, Therapeutic Exercise PT Services Indicated Yes Treatment Frequency and 2x/wk for 4 wks Duration These treatments will address the objective and functional deficits as defined above. The patient will be advanced safely and appropriately in order for the patient to progress towards his/her prior level of function. Additional exercises will be introduced and as well as a comprehensive home exercise program upon discharge, if needed, ?to ensure carryover of functional gains achieved in the clinic. This treatment plan has been reviewed and agreement upon by the patient.
--- NOTE | 2023-01-07 08:41 | PTOPDC ---
Assessment and note entered by Stef Barroso, PT, DPT Evaluation Information Assessment Status Discharge Diagnosis L hip and knee pain Onset 1 month Subjective Information Pt states she thinks things are going better overall. She states she lost a few pounds and could tell as difference with how easy things are. She states she went up the stairs this morning and her knees did not bother her. Reported Pain Level Pain Score 0,0: Self Report Assessment PT Clinical Summary Ronaldo presents to therapy today for her progress report following 8 visits of skilled therapy to treat her L hip and knee pain. Today she demonstrates increase LE strength throughout, with decreased pain. She ambulates with a gait speed that is now WNL for her age group and does so without deviations. Her ankle stability has significantly improved since completing therapy as well. She has met or progressed towards all of her therapy goals and no longer requires skilled therapy services. She will be discharged at this time, she was encouraged to continue her HEP and to return to her prior exercise routine. Plan of Care PT Services Indicated No
== END 2023-01-07 14:03 | disposition home or self-care (01) ==
LOC: ANHGOSHPT 08:00
PROVIDERS: PCP Internal Medicine; Visit Provider Orthopaedic Surgery
DX: M16.12 Unilateral primary osteoarthritis, left hip (principal); M17.12 Unilateral primary osteoarthritis, left knee
CPT/HCPCS: 97110; 97112; 97116; 97161; 97530

== ENCOUNTER 2023-04-06 08:54 | Outpatient (CLI) | payer MEDICARE, SELFPAY ==
[2023-04-06 18:38] LABS: Alanine Aminotransferase 33 U/L (6-35); Alkaline Phosphatase 46 U/L (38-126); Anion Gap 3 mmol/L (8-16); Aspartate Amino Transferase 42 U/L (14-36); Basophils Percent Auto 0.7 % (0.2-1.2); Bilirubin,Total 0.8 mg/dL (0.2-1.3); Blood Urea Nitrogen 19 mg/dL (7-17); Calcium 9.3 mg/dL (8.4-10.2); Carbon Dioxide 28 mmol/L (22-30); Chloride 103 mmol/L (98-107); Cholesterol 124 mg/dL (0-200); Eosinophils Absolute Auto 0.1 K/mm3 (0-0.3); Eosinophils Percent Auto 2.1 % (0-4.4); Estimated Glomerular Filt Rate > 60; Glucose 109 mg/dL (65-110); HDL Direct 41 mg/dL; Hemoglobin 14.1 g/dL (12.0-15.0); Lymphocytes Absolute Auto 3.03 K/mm3 (0.9-3.2); Mean Corpuscular HGB Conc 32.8 g/dl (32-36); Mean Corpuscular Hemoglobin 31.3 pg (26-34); Mean Corpuscular Volume 95.6 fl (80-100); Mean Platelet Volume 11.3 fl (7.4-10.4); Monocytes Absolute Auto 0.6 K/mm3 (0.1-0.6); Monocytes Percent Auto 10.4 % (2.6-8.5); Neutrophils Absolute Auto 2.2 K/mm3 (1.3-6.7); Neutrophils Percent Auto 36.8 % (45.5-73.1); Platelet Count Result 173 k/mm3 (150-375); Potassium 3.9 mmol/L (3.4-5.0); Red Cell Distribution Width 13.2 % (11.5-14.5); Sodium 134 mmol/L (137-145); Triglycerides 76 mg/dL (<150); White Blood Count 6.1 K/mm3 (4.5-10.0)
[2023-04-06 18:47] LABS: LDL Cholesterol Direct 56 mg/dL
[2023-04-06 19:42] LABS: Hemoglobin A1C 5.8 % (<5.7)
[2023-04-06 19:51] LABS: Free T4 Free Thyroxine 1.66 ng/mL (0.78-2.19); Vitamin D 25 Hydroxy 36.4 ng/mL
== END 2023-04-06 08:55 | disposition home or self-care (01) ==
LOC: ANHGOSHLAB 09:01
PROVIDERS: PCP Internal Medicine; Visit Provider Internal Medicine
DX: I10 Essential (primary) hypertension (principal); R73.03 Prediabetes; E55.9 Vitamin D deficiency, unspecified; E03.9 Hypothyroidism, unspecified; E78.2 Mixed hyperlipidemia
CPT/HCPCS: 36415; 80053; 80061; 82306; 83036; 84439; 84443; 85025

== ENCOUNTER 2023-05-26 07:47 | Outpatient (CLI) | payer MEDICARE, SELFPAY | END 2023-05-26 07:48 | disposition home or self-care (01) | LOC: ANHAUDASC 07:49 | PROVIDERS: PCP Internal Medicine; Visit Provider Internal Medicine | DX: H90.3 Sensorineural hearing loss, bilateral (principal) | CPT/HCPCS: 92557; 92567 ==

== ENCOUNTER 2023-08-17 10:15 | Outpatient (CLI) | payer MEDICARE, SELFPAY ==
[2023-08-17 13:27] LABS: Alanine Aminotransferase 33 U/L (6-35); Albumin Level 4.3 g/dL (3.5-5.1); Alkaline Phosphatase 53 U/L (38-126); Anion Gap 7 mmol/L (8-16); Aspartate Amino Transferase 45 U/L (14-36); Bilirubin,Total 0.7 mg/dL (0.2-1.3); Blood Urea Nitrogen 18 mg/dL (7-17); Calcium 9.3 mg/dL (8.4-10.2); Carbon Dioxide 28 mmol/L (22-30); Chloride 104 mmol/L (98-107); Estimated Glomerular Filt Rate > 60; Glucose 108 mg/dL (65-110); Sodium 139 mmol/L (137-145)
[2023-08-17 13:36] LABS: Vitamin D 25 Hydroxy 41.7 ng/mL
== END 2023-08-17 10:16 | disposition home or self-care (01) ==
PROVIDERS: PCP Internal Medicine; Visit Provider Internal Medicine
DX: E55.9 Vitamin D deficiency, unspecified (principal); I10 Essential (primary) hypertension; Z79.899 Other long term (current) drug therapy; R73.03 Prediabetes
CPT/HCPCS: 36415; 80053; 82306; 83036

== ENCOUNTER 2024-03-27 10:43 | Outpatient (CLI) | payer MEDICARE, SELFPAY ==
[2024-03-27 14:46] LABS: Basophils Percent Auto 0.6 % (0.2-1.2); Eosinophils Absolute Auto 0.1 K/mm3 (0-0.3); Eosinophils Percent Auto 1.2 % (0-4.4); Hematocrit 44.6 % (37.0-47.0); Hemoglobin 14.6 g/dL (12.0-15.0); Immature Granulocyte Absolute 0.01 K/mm3 (0.00-0.031); Immature Granulocyte Percent A 0.2 % (0-0.5); Lymphocytes Absolute Auto 2.98 K/mm3 (0.9-3.2); Lymphocytes Percent Auto 46.1 % (18.3-44.2); Mean Corpuscular HGB Conc 32.7 g/dl (32-36); Mean Corpuscular Hemoglobin 31.5 pg (26-34); Mean Corpuscular Volume 96.3 fl (80-100); Mean Platelet Volume 11.8 fl (7.4-10.4); Monocytes Absolute Auto 0.6 K/mm3 (0.1-0.6); Monocytes Percent Auto 9.7 % (2.6-8.5); Neutrophils Absolute Auto 2.7 K/mm3 (1.3-6.7); Neutrophils Percent Auto 42.2 % (45.5-73.1); Platelet Count Result 184 k/mm3 (150-375); Red Blood Count 4.63 M/mm3 (4.2-5.4); Red Cell Distribution Width 12.9 % (11.5-14.5); White Blood Count 6.5 K/mm3 (4.5-10.0)
[2024-03-27 15:28] LABS: Free T4 Free Thyroxine 1.54 ng/mL (0.78-2.19); Vitamin D 25 Hydroxy 51.2 ng/mL
[2024-03-27 15:44] LABS: Alanine Aminotransferase 33 U/L (6-35); Albumin Level 4.3 g/dL (3.5-5.1); Alkaline Phosphatase 51 U/L (38-126); Anion Gap 9 mmol/L (4-12); Aspartate Amino Transferase 48 U/L (14-36); Bilirubin,Total 1.1 mg/dL (0.2-1.3); Blood Urea Nitrogen 23 mg/dL (7-17); Calcium 9.3 mg/dL (8.4-10.2); Carbon Dioxide 27 mmol/L (22-30); Chloride 100 mmol/L (98-107); Cholesterol 122 mg/dL (0-200); Estimated Glomerular Filt Rate > 60; Glucose 101 mg/dL (65-110); HDL Direct 42 mg/dL; Potassium 4.1 mmol/L (3.4-5.0); Sodium 136 mmol/L (137-145); Triglycerides 90 mg/dL (<150)
[2024-03-27 15:54] LABS: LDL Cholesterol Direct 59 mg/dL
[2024-03-27 16:46] LABS: Hemoglobin A1C 6.1 % (<5.7)
== END 2024-03-27 10:44 | disposition home or self-care (01) ==
LOC: ANHGOSHLAB 10:44
PROVIDERS: PCP Internal Medicine; Visit Provider Internal Medicine
DX: E78.2 Mixed hyperlipidemia (principal); E03.9 Hypothyroidism, unspecified; I10 Essential (primary) hypertension; E55.9 Vitamin D deficiency, unspecified; R73.03 Prediabetes
CPT/HCPCS: 36415; 80053; 80061; 82306; 83036; 84439; 84443; 85025

== ENCOUNTER 2024-07-20 07:33 | Outpatient (CLI) | payer MEDICARE, SELFPAY ==
--- NOTE | ~2024-07-20 | MM_ITS ---
EXAMINATION: MM screening [facility] BI w ulices HISTORY: Screening mammogram TECHNIQUE: Craniocaudal and mediolateral oblique 3-D tomosynthesis images were obtained and synthetic 2-D images were generated. CAD analysis was submitted and interpreted. COMPARISON: 06/22/2022, 04/24/2021, 08/07/2020 BREAST PARENCHYMAL COMPOSITION:Not Dense. There are scattered areas of fibroglandular density. FINDINGS: Multiple low-density bilateral breast masses are consistent with multiple cysts and/or fibr oadenomas. No overtly suspicious lesion evident. No suspicious mass, calcification, or architectural distortion are identified in either breast to suggest malignancy. There has been no suspicious interv al change. IMPRESSION: No mammographic evidence of malignancy. Recommend routine screening mammography in one year. BI-RADS Category 2: Benign finding(s). Reviewed, dictated and finalized at location . 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
== END 2024-07-20 07:34 | disposition home or self-care (01) ==
LOC: ANHIMG 07:35
PROVIDERS: PCP Internal Medicine; Visit Provider Internal Medicine
DX: Z12.31 Encounter for screening mammogram for malignant neoplasm of breast (principal)
CPT/HCPCS: 77063; 77067

== ENCOUNTER 2024-08-18 11:09 | Outpatient (CLI) | payer MEDICARE, SELFPAY ==
[2024-08-18 13:49] LABS: Add Urine Microscopic? NO; Appearance Urine Clear (Clear); Bilirubin Urine Negative (Negative); Blood Urine Negative (Negative); Color Urine Yellow (Yellow); Glucose Urine UA Negative (Negative); Ketones Urine Negative (Negative); Leukocyte Esterase Ur Negative LEU/UL (Negative); Nitrate Urine Negative (Negative); Protein Urine Negative (Negative); Specific Grav Ur 1.006 (1.001-1.035); Urobilinogen Urine 0.2 mg/dL (<2.0)
[2024-08-18 14:01] LABS: Alanine Aminotransferase 37 U/L (6-35); Albumin Level 4.4 g/dL (3.5-5.1); Alkaline Phosphatase 53 U/L (38-126); Anion Gap 7 mmol/L (4-12); Aspartate Amino Transferase 51 U/L (14-36); Blood Urea Nitrogen 23 mg/dL (7-17); Calcium 9.8 mg/dL (8.4-10.2); Carbon Dioxide 31 mmol/L (22-30); Chloride 100 mmol/L (98-107); Cholesterol 129 mg/dL (0-200); Estimated Glomerular Filt Rate > 60; Glucose 118 mg/dL (65-110); HDL Direct 42 mg/dL; Sodium 138 mmol/L (137-145); Triglycerides 88 mg/dL (<150)
[2024-08-18 14:11] LABS: Free T4 Free Thyroxine 1.33 ng/dL (0.78-2.19)
[2024-08-18 14:12] LABS: LDL Cholesterol Direct 55 mg/dL
== END 2024-08-18 11:10 | disposition home or self-care (01) ==
LOC: ANHGOSHLAB 11:10
PROVIDERS: PCP Internal Medicine; Visit Provider Internal Medicine
DX: E03.9 Hypothyroidism, unspecified (principal); R73.03 Prediabetes; E78.5 Hyperlipidemia, unspecified; I10 Essential (primary) hypertension; Z79.899 Other long term (current) drug therapy
CPT/HCPCS: 36415; 80053; 80061; 81003; 83036; 84439; 84443

== ENCOUNTER 2025-01-26 10:26 | Outpatient (CLI) | payer MEDICARE, SELFPAY ==
--- OUTSIDE RECORDS SUMMARY | 2025-01-26 10:28 | XMS_ITS | Clinical Summary ---
Author Organization [facility] Address [address] [place] [address] Care Team Providers Care Bioinformatics Technician Name Role Phone Rah Denis MD Primary Care Provider [phone] Source Comments [facility],non-owned Affiliates and Associated Physician Practices is amultiple site organization consisting of ambulatory clinics and hospital sitesin [place], [place], [place] and [place]. This disclosure is being madepursuant to the Care Everywhere program and may not contain all information available regarding this patient. Last updated 18.[facility] Allergies Active Allergy Reactions Criticality Noted Date Comments Bee Venom Rash Medium 11/28/2019 hands and feet were itchy heart races Medications * Be aware that medications may not be up to date on this document. Alwaysverify current medications with the patient. rosuvastatin (CRESTOR) 20 MG tablet Take 20 mg by mouth once daily 11/16/2019 Active olmesartan-hydr oCHLOROthiazide (BENICAR HCT) 40-12.5 MG tablet Take 1 (one) tablet by mouth once daily 11/22/2019 Active levothyroxine (SYNTHROID) 125 MCG tablet Take 1 (one) tablet by mouth once daily 11/16/2019 Active [place]-3 Fatty Acids (FISH OIL DELAYED RELEASE) 1000 MG capsule Take 2 (two) capsules by mouth daily with food Active Calcium Carb-Cholecalci ferol (CALCIUM 500+D PO) Take by mouth once daily Active EPINEPHrine (Epipen) 0.3 MG/0.3ML auto-injector pen as needed 01/02/2022 Active amLODIPine (Norvasc) 2.5 MG tablet Take 1 (one) tablet by mouth once daily 10/12/2023 Active Active Problems Problem Noted Date Diagnosed Date Endometrial adenocarcinoma 07/04/2020 Class 3 severe obesity with body mass index (BMI) of 40.0 to 44.9 in adult 07/04/2020 S/P total hysterectomy and B SO (bilateral salpingo-oophorectomy) 07/04/2020 Encounters Date Type Department Care Team Description 01/11/2025 10:30 AM CDT Office Visit [facility] - [facility] [address] [address] Isatu Bey MD Endometrial cancer (HCC) (Primary Dx) 01/11/2025 Travel from Last 3 Months Immunizations Immunization Administration Dates Next Due INFLUENZA VACCINE, QUADR. (F LUZONE; FLULAVAL; FLUARIX; AFLURIA QUADRIVALENT; 6MO+), 0.5 ML (IIV4) 04/23/2020,06/16/2019 Zoster Hzv Vacc Recombinant Inj Im 06/23/2020 Family History Medical History Relation Name Comments Cancer - Prostate Brother Cancer - Colon Father Cancer - Lung Father Relation Name Status Comments Brother Father Social History Tobacco Use Types Packs/Day Years Used Date Smoking Tobacco: Never Smokeless Tobacco: Never Tobacco Cessation:Counseling Given: Not Answered Alcohol Use Standard Drinks/Week Comments Yes 0 (1 standard drink = 0.6 oz pur e alcohol) special occasions AUDIT-C Answer Date Recorded Frequency of Alcohol Consumption Monthly or less 11/28/2019 Average Number of Drinks 1 or 2 020 Frequency of Binge Drinking Never 11/05 Comments No Sex and Gender Information Value Date Recorded Sex Assigned at Not on file 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 Gender Identity Not on file Sexual Orientation Not on file Last Filed Vital Signs Vital Sign Reading Time Taken Comments Blood Pressure 122/94 01/11/2025 10:29 AM CDT Pulse 74 12/31/2022 10:42 AM CDT Temperature 37.6 C (99.6 F) 01/02/2020 10:45 AM CDT Respiratory Rate 20 12/04/2019 9:30 PM CDT Oxygen Saturation 99% 12/31/2022 10: 42 AM CDT Inhaled Oxygen Concentration - - Weight 128.9 kg (284 lb 3.2 oz) 025 10:29 AM CDT Height 168.9 cm (5' 6.5 ) 01/11/2025 10 :29 AM CDT Body Mass Index 45.18 01/11/2025 10:29 AM CDT Plan of Treatment Upcoming Encounters Date Type Department Care Team (Late st Contact Info) Description 01/15/2026 10:30 AM CDT Office Visit [facility] - [facility] [address] [place] [address] Isatu Bey MD [address] [place], [place] [id number] Health Maintenance Due Date Last Done Comments BONE DENSITY TESTING 1960 COLOGUARD (AGES 45-75) - COLON CA SCREENING 1960 COLON MONITORING 1960 COLONOSCOPY - COLON CA SCREENING 1960 CT COLONOGRAPHY - COLON CA SCREENING 1960 Colorectal Cancer Screening 1960 FIT - COLON CA SCREENING 1960 FLEX SIG - COLON CA SCREENING 1960 MAMMOGRAM 1960 MEDICARE AWV 12 MONTHS 1960 HEPATITIS C SCREENING 05/02/1976 DTAP/TDAP/TD VACCINES (1 - Tdap) 1977 PNEUMOCOCCAL VACCINE 50+ (1 of 1 - PCV) 2008 Respiratory Syncytial Virus (RSV) Vaccine Pt: or over 60 yrs (1 - Risk 60-74 years 1-dose series) 2018 ZOSTER VACCINE (2 of 2) 08/18/2020 06/23/2020 COVID-19 VACCINE (4 - season) 2024 03/01/2022, 08/17/2021, 11/12/2020 DEPRESSION SCREENING 09/06/2024 SCREENING FOR DIABETES 01/11/2025 12/04/2019 INFLUENZA VACCINE (Season Ended) 2025 06/01/2021, 04/23/2020, 06/16/2019, Additional history exists HEPATITIS B VACCINE Aged Out No longe r eligible based on patient's age to complete this topic HIB VACCINE Aged Out No longer eligi ble based on patient's age to complete this topic HPV VACCINE Aged Out No longer eligi ble based on patient's age to complete this topic MENINGOCOCCAL (Group B) VACCINE SHARED DECISION-MAKING Aged Out No longer eligible based on patient's age to complete this topic MENINGOCOCCAL GROUPS A/C/Y/W VACCINE Aged Out No longer eligible based on patient's age to complete this topic Procedures Procedure Name Priority Date/Time Associated Diagnosis Comments COMPREHENSIVE METABOLIC PANEL STAT 12/04/2019 9:37 AM CDT Preop examination from Last 3 Months or Most Recently Relevant to Health Maintenance Results * (ABNORMAL) COMPREHENSIVE METABOLIC PANEL (12/04/2019 9:37 AM CDT) Glucose 109(H) 70 - 105 mg/dL 12/04/2019 10:24 AM CDT [facility] Sodium 140 136 - 145 mmol/L 12/04/2019 10:24 AM CDT [facility] Potassium 4.9 3.5 - 5.1 mmol/L 12/04/2019 10:24 AM CDT [facility] Chloride 106 98 - 107 mmol/L 12/04/2019 10:24 AM CDT [facility] CO2 23 23 - 31 mmol/L 12/04/2019 10:24 AM CDT [facility] Calcium 9.7 8.4 - 10.4 mg/dL 12/04/2019 10:24 AM CDT [facility] Anion Gap 11 8 - 16 mmol/L 12/04/2019 10:24 AM CDT [facility] BUN 25(H) 9.8 - 20.1 mg/dL 12/04/2019 10:24 AM CDT [facility] Creatinine 1.01 0.57 - 1.11 mg/dL 12/04/2019 10:24 AM CDT [facility] Alkaline Phosphatase 42 40 - 150 U/L 12/04/2019 10:24 AM CDT [facility] ALT 28 0 - 61 U/L 12/04/2019 10:24 AM CDT [facility] AST 28 5 - 34 U/L 12/04/2019 10:24 AM CDT [facility] Protein Total 7.6 6.4 - 8.3 gm/dL 12/04/2019 10:24 AM CDT [facility] Albumin 4.3 3.2 - 4.6 gm/dL 12/04/2019 10:24 AM CDT [facility] Bilirubin Total 1.0 0.2 - 1.0 mg/dL 12/04/2019 10:24 AM CDT [facility] eGFR by MDRD 56(L) >60 mL/min/1.7 3m2 12/04/2019 10:24 AM CDT [facility] eGFR by MDRD >60 >60 mL/min/1.7 3m2 12/04/2019 10:24 AM CDT [facility] Blood BLOOD SPECIMEN / Unknown Venipuncture / Unknown 12/04/2019 9:37 AM CDT 12/04/2019 9:51 AM CDT Isatu Bey MD LAB - CHEMISTRY ORDERABLES Final Result [facility] [address] [place], [place] [id number] from Last 3 Months or Most Recently Relevant to Health Maintenance Insurance MEDICARE MEDICARE SUPPLEMENT PAYOR GENERIC Care Teams Bioinformatics Technician Relationship Specialty Start Date End Date Rah Denis MD [address] [facility] [address] [place] [address] PCP - General 11/28/19
[2025-01-26 12:24] LABS: Basophils Percent Auto 0.3 % (0.2-1.2); Eosinophils Absolute Auto 0.1 K/mm3 (0-0.3); Hematocrit 43.4 % (37.0-47.0); Hemoglobin 14.1 g/dL (12.0-15.0); Immature Granulocyte Absolute 0.01 K/mm3 (0.00-0.031); Immature Granulocyte Percent A 0.2 % (0-0.5); Lymphocytes Absolute Auto 2.39 K/mm3 (0.9-3.2); Lymphocytes Percent Auto 40.7 % (18.3-44.2); Mean Corpuscular HGB Conc 32.5 g/dl (32-36); Mean Corpuscular Hemoglobin 31.1 pg (26-34); Mean Corpuscular Volume 95.8 fl (80-100); Mean Platelet Volume 11.5 fl (7.4-10.4); Monocytes Absolute Auto 0.6 K/mm3 (0.1-0.6); Monocytes Percent Auto 10.1 % (2.6-8.5); Neutrophils Absolute Auto 2.7 K/mm3 (1.3-6.7); Neutrophils Percent Auto 46.7 % (45.5-73.1); Platelet Count Result 161 k/mm3 (150-375); Red Blood Count 4.53 M/mm3 (4.2-5.4); Red Cell Distribution Width 12.9 % (11.5-14.5); White Blood Count 5.9 K/mm3 (4.5-10.0)
[2025-01-26 12:37] LABS: Alanine Aminotransferase 33 U/L (6-35); Albumin Level 4.1 g/dL (3.5-5.1); Alkaline Phosphatase 45 U/L (38-126); Anion Gap 7 mmol/L (4-12); Aspartate Amino Transferase 40 U/L (14-36); Bilirubin,Total 0.8 mg/dL (0.2-1.3); Blood Urea Nitrogen 20 mg/dL (7-17); Calcium 9.3 mg/dL (8.4-10.2); Carbon Dioxide 28 mmol/L (22-30); Chloride 104 mmol/L (98-107); Cholesterol 118 mg/dL (0-200); Estimated Glomerular Filt Rate > 60; Glucose 106 mg/dL (65-110); HDL Direct 46 mg/dL; Potassium 4.1 mmol/L (3.4-5.0); Sodium 139 mmol/L (137-145); Triglycerides 68 mg/dL (<150)
[2025-01-26 12:48] LABS: LDL Cholesterol Direct 49 mg/dL
[2025-01-26 13:01] LABS: Vitamin D 25 Hydroxy 44.4 ng/mL
[2025-01-26 18:00] LABS: Hemoglobin A1C 5.8 % (<5.7)
== END 2025-01-26 10:27 | disposition home or self-care (01) ==
LOC: ANHGOSHLAB 10:27
PROVIDERS: PCP Internal Medicine; Visit Provider Internal Medicine
DX: E78.2 Mixed hyperlipidemia (principal); I10 Essential (primary) hypertension; E55.9 Vitamin D deficiency, unspecified; R73.03 Prediabetes
CPT/HCPCS: 36415; 80053; 80061; 82306; 83036; 85025

== ENCOUNTER 2025-05-08 08:10 | Outpatient (CLI) | payer MEDICARE, SELFPAY ==
--- OUTSIDE RECORDS SUMMARY | 2025-05-08 08:14 | XMS_ITS | Clinical Summary ---
Author Organization [facility] [employer] Address [address] [place] [address] Care Team Providers Care Automatic Serging Machine Operator Name Role Phone Rah Denis MD Primary Care Provider [phone] Source Comments [facility],non-owned Affiliates and Associated Physician Practices is amultiple site organization consisting of ambulatory clinics and hospital sitesin [place], [place], [place] and [place]. This disclosure is being madepursuant to the Care Everywhere program and may not contain all information available regarding this patient. 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 Gender Identity Not on file Sexual Orientation [...] 10:29 AM CDT Height 168.9 cm (5' 6.5) 01/11/2025 10 :29 AM CDT Body Mass Index 45.18 01/11/2025 10:29 AM CDT Plan of Treatment Upcoming Encounters Date Type Department Care Team (Late st Contact Info) Description 01/15/2026 10:30 AM CDT Office Visit [facility] [address] [place] [phone] Isatu Bey MD [address] [place] [address] Health Maintenance Due Date Last Done Comments [...] SCREENING FOR DIABETES 01/11/2025 12/04/2019 INFLUENZA VACCINE (#1) 2025 , 04/23/2020, 06/16/2019, Additional history exists HEPATITIS B [...] - 105 mg/dL 12/04/2019 10:24 AM CDT [facility] Sodium 140 136 - 145 mmol/L 12/04/2019 10:24 AM CDT [facility] Potassium 4.9 3.5 - 5.1 mmol/L 12/04/2019 10:24 AM CDT [facility] Chloride 106 98 - 107 mmol/L 12/04/2019 10:24 AM CDT [facility] CO2 23 23 - 31 mmol/L 12/04/2019 10:24 AM CDT [facility] Calcium 9.7 8.4 - 10.4 mg/dL 12/04/2019 10:24 AM CDT [facility] Anion Gap 11 8 - 16 mmol/L 12/04/2019 10:24 AM CDT [facility] BUN 25(H) 9.8 - 20.1 mg/dL 12/04/2019 10:24 AM CDT [facility] Creatinine 1.01 0.57 - 1.11 mg/dL 12/04/2019 10:24 AM CDT [facility] Alkaline Phosphatase 42 40 - 150 U/L 12/04/2019 10:24 AM CDT [facility] ALT 28 0 - 61 U/L 12/04/2019 10:24 AM CDT [facility] AST 28 5 - 34 U/L 12/04/2019 10:24 AM CDT [facility] Protein Total 7.6 6.4 - 8.3 gm/dL 12/04/2019 10:24 AM CDT [facility] Albumin 4.3 3.2 - 4.6 gm/dL 12/04/2019 10:24 AM CDT [facility] Bilirubin Total 1.0 0.2 - 1.0 mg/dL 12/04/2019 10:24 AM CDT [facility] eGFR by MDRD 56(L) >60 mL/min/1.7 3m2 12/04/2019 10:24 AM CDT [facility] eGFR by MDRD >60 >60 mL/min/1.7 3m2 12/04/2019 10:24 AM CDT [facility] Blood BLOOD SPECIMEN / Unknown Venipuncture / Unknown 12/04/2019 9:37 AM CDT 12/04/2019 9:51 AM CDT Isatu Bey MD LAB - CHEMISTRY ORDERABLES Final Result Performing Organization Address City/State/[facility] Co de Phone Number [facility] [address] [place] [address] from Last 3 Months or Most Recently Relevant to Health Maintenance Insurance MEDICARE MEDICARE SUPPLEMENT PAYOR GENERIC Care Teams Automatic Serging Machine Operator Relationship Specialty Start Date End Date Rah Denis MD [address] [facility] [address] [place] [phone] PCP - General 11/28/19
--- NOTE | 2025-06-01 21:23 | WPDSLEEPSTUD ---
Sleep Study Date of Study: 05/08/25 Ordering Provider: Rah Denis MD Interpreting Physician: Chrisite Mckeon MD Sleep Study Type: Split Polysomnogram Height: 1.68 m Weight: 127.006 kg Body Mass Index: 45.1 Neck Circumference (inches): 15 Sarah Ann: 12 Reason for Sleep Study Hypersomnolence Sleep History Ronaldo Bolton is a 65-year-old woman with excessive daytime sleepiness. She occasionally awakens from sleep short of breath. She occasionally wakes at night with heartburn, belching or coughing.??She always snores, and always snores loudly enough that others complain. She frequently has trouble sleeping when she has a cold. She occasionally wakes up gasping for breath during the night. She constantly has breathing problems at night reported to her by others. She rarely sweats excessively at night. She occasionally notices her heart pounding or beating irregularly during the night. She frequently falls asleep during the day. She occasionally falls asleep involuntarily, never falls asleep while driving. She never experiences loss of muscle tone with strong emotion. She never feels paralyzed on waking or falling asleep. She never experiences vivid dreams upon waking or falling asleep. She never feels afraid of going to sleep. She never has nightmares. She rarely recalls her dreams. She occasionally has thoughts racing through her mind. She rarely feels sad, depressed, or anxious. She rarely notices parts of her body jerk. She rarely kicks during the night. She never feels crawling or aching feelings in her legs. She never feels leg pain at night. She never has morning jaw pain, and never grinds her teeth at night. She rarely feels bothered by pain during the day, is never awakened by pain during the night. She rarely wakes up feeling stiff in the morning, never wakes feeling sore or achy in the morning. She never awakens with pain in her neck, spine, or joints. Normal bedtime is 10:30 p.m., falling asleep within a 1/2 hour, sometimes taking up to 1 hour to fall asleep. She wakes between 1 and 2 times during the night to go to the bathroom, sometimes stays in bed for at least a 1/2 hour. If she is not able to return to sleep she usually goes to watch television or read. She is usually able to return to sleep within 15-30 minutes. Her normal wake time is 5:00 a.m.. She keeps the same schedule on weekends. She estimates getting 7 out parts of sleep per night. she sometimes takes naps in the afternoon or evening. Sometimes a short 10-15 minute nap can be refreshing. Most of the time she feels adequate on waking. She feels better in the morning compared to other times of day. Habits:??Tobacco: none Caffeine: 1 cup of coffee daily Alcohol: none Recreational substances: none [facility] Past Medical History Medical History (Updated 06/01/25 @ 21:24 by Christie Mckeon MD) Obstructive sleep apnea Skin lesion Encounter for Medicare annual wellness exam Trigger finger Fuchs' corneal dystrophy Body mass index (BMI) 45.0-49.9, adult Left knee pain Left hip pain On [facility] drug therapy Encounter for routine adult health examination with abnormal findings Breast cancer screening Post-menopausal Fibrocystic changes of left breast Left breast mass Post-surgical hypothyroidism Seborrheic keratosis Skin tags, multiple acquired Pre-diabetes Vitamin D deficiency PATRICK (obstructive sleep apnea) History of benign breast biopsy H/O bee sting allergy History of uterine cancer Breast mass seen on mammogram Colon cancer screening Need for shingles vaccine Exposure to COVID-19 virus Abnormal finding of blood chemistry Encounter for routine adult health examination without abnormal findings Allergy to EBONI inhibitors Body mass index (BMI) 40.0-44.9, adult Uterine cancer Hearing loss BMI 39.0-39.9,adult History of angiotensin converting enzyme inhibitor (EBONI-I) allergy FHx: colon cancer Hyperlipidemia Encounter for preventive health examination On long term care pharmacist drug therapy IGT (impaired glucose tolerance) Benign essential hypertension Hypothyroidism (acquired) Surgical History Surgical History History of hysterectomy History of ankle surgery History of eye surgery Status post breast lumpectomy left breast History of delivery History of thyroid surgery History of tonsillectomy Family History Family History Mother Hypertension Family history of Alzheimer's disease Family history of elevated blood lipids Father Patient's father is Carcinoma of colon Family history of lung cancer Sibling Diabetes mellitus Family history of elevated blood lipids Grandparent Heart disease Cerebrovascular accident Other Family history of allergic disorder Family history of cardiovascular disease Family history of osteoporosis Social History Social History Smoking status: Never smoker Second hand tobacco smoke exposure: No Alcohol intake: current Alcohol use details: rare Lack of Transportation: No Lack of Food: Never True Current Housing: I Have Housing Concerned About Future Housing: No Difficulty Paying Gas/Electric Bills: No Difficulty Paying for Meds: No Currently Unemployed: No Education: Associate Degree Difficulty w/ Childcare or Family Care: No Living arrangements: with family Occupation/Education: other 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 Gender identity (if verbalized by the patient): Female Spiritual care concerns: No Medications Home Medications ?Medication ?Instructions ?Recorded ?Confirmed ?Type calcium carbonate (Calcium 600) 600 mg PO QPM 10/25/19 03/27/25 History omega 9-esa-tob-fish oil 1,000 mg 2 cap PO QPM 10/25/19 03/27/25 History (120 mg-180 mg) capsule (Fish Oil) calcium polycarbophil 625 mg 1,250 mg PO BID 06/16/21 03/27/25 History tablet (FiberCon) cholecalciferol (vitamin D3) 50 50 mcg PO DAILY 04/07/23 03/27/25 History mcg (2,000 unit) capsule amlodipine 2.5 mg tablet 2.5 mg PO DAILY #90 tabs 08/21/24 03/27/25 Rx epinephrine 0.3 mg/0.3 mL 0.3 mg (0.3 mL) IM ONCE #2 ea 01/30/25 03/27/25 Rx injection, auto-injector (EpiPen 2-Yung) levothyroxine 125 mcg tablet See Rx Instructions .Route 03/21/25 03/27/25 Rx .COMPLEX #90 tabs olmesartan 40 See Rx Instructions .Route 03/26/25 03/27/25 Rx mg-hydrochlorothiazide 12.5 mg .COMPLEX #90 tabs tablet rosuvastatin 20 mg tablet See Rx Instructions .Route 03/26/25 03/27/25 Rx .COMPLEX #90 tabs zolpidem 10 mg tablet 10 mg PO QHS sleep eval #1 tablet 07/22/25 07/22/25 Rx Sleep Procedure A split night polysomnogram using the [employer] multi-channel system recorded the standard physiologic parameters including EEG, EOG, submentalis EMG, anterior tibialis EMG, EKG, body position, nasal and oral airflow using nasal pressure sensor and thermistor. Respiratory parameters of chest and abdominal movements were recorded with Respiratory Inductance Plethysmography belts. Oxygen saturation was recorded by pulse oximetry. Video monitoring was also performed. Sleep stages, periodic limb movements, and EEG arousals were scored in 30 second epochs according to the criteria of the AASM Scoring Manual. The Apnea-Hypopnea Index was calculated using [facility] guidelines for definition of hypopnea while scoring respiratory events. The patient self-administered Ambien 10 mg at the beginning of the study. After the baseline portion the patient met criteria for a titration with an AHI of 7.8 and desaturation to 75%. She used a medium ResMed AirFit N20 nasal mask with heated humidity, initial pressure was CPAP 7 cm, titrated up to CPAP 12 cm. At CPAP 12 cm, the patient spent 63.5 minutes in bed, 26.5 minutes awake, 25.5 minutes in non-REM and 11.5 minutes in REM. Sleep efficiency was 58.3%. The residual apnea-hypopnea index was 1.6 and the lowest saturation was 90%. Supine REM occurred at this setting although was fragmented. Sleep Architecture During the diagnostic portion of the study, the total recording time was 200.3 minutes. The total sleep time was 146.5 minutes. Sleep latency was 33.3 minutes. REM latency was 147.0 minutes. Sleep Efficiency was 73.1%. The patient had 16 awakenings for an awakening index of 6.6. Wake after sleep onset time was 20.5 minutes. The patient spent 9.5 minutes, 6.5% of total sleep time in Stage N1. The patient spent 72.5 minutes, 49.5% in Stage N2. The patient spent 57.0 minutes, 38.9% in Stage N3. The patient spent 7.5 minutes, 5.1% in Stage REM sleep. At 01:01:46 AM the patient was placed on PAP treatment and was titrated at pressures ranging from CPAP 5 cm up to 12 cm. During the treatment portion of the study, the total recording time was 298.3 minutes. The total sleep time was 245.5 minutes. Sleep latency was 11.0 minutes. REM latency was 77.0 minutes. Sleep Efficiency was 82.3%. Wake after Sleep Onset time was 41.5 minutes. The patient spent 33.0 minutes, 13.4% of total sleep time in Stage N1. The patient spent 184.0 minutes, 74.9% in Stage N2. The patient spent no time in Stage N3. The patient spent 28.5 minutes, 11.6% in Stage REM. Respiratory Analysis During the diagnostic portion of the study, the patient had 19 hypopneas, no obstructive apneas, no mixed apneas, and no central apneas for an overall Apnea Hypopnea Index of 7.8 events per hour. The REM Apnea Hypopnea Index was 56.0. The NREM Apnea Hypopnea Index was 5.2. The patient had a Central Apnea Hypopnea Index of 0. There were no Respiratory Effort Related Arousals. The Respiratory Disturbance Index is 7.8 events per hour. There was no evidence of Chris-Mahan Respirations. During the treatment portion of the study, the patient had 15 hypopneas, no obstructive apneas, no mixed apneas, and no central apneas for an overall Apnea Hypopnea Index of 3.7 events per hour. The REM Apnea Hypopnea Index was 0. The NREM Apnea Hypopnea Index was 4.1. The patient had a Central Apnea Hypopnea Index of 0. There were no Respiratory Effort Related Arousals. The Respiratory Disturbance Index is 3.9 events per hour. There was no evidence of Chris-Mahan Respirations. Arousals During the diagnostic portion of the study, there were a total of 32 arousals for an arousal index of 13.1. There were 5 respiratory arousals for an index of 2.0. There were no periodic limb movement arousals.There were 8 isolated limb movement arousals for an index of 3.3. There were 19 spontaneous arousals for an index of 7.8. During the treatment portion of the study, there were a total of 78 arousals for an index of 19.1. There were 2 respiratory arousals for an index of 0.5. There were no periodic limb movement arousals. There were 13 isolated limb movement arousals for an index of 3.2. There were 63 spontaneous arousals for an index of 15.4. Periodic Limb Movements During the diagnostic portion of the study, the patient had 8 isolated limb movements with an index of 3.3. The patient had no periodic limb movements. The patient had a total of 8 limb movements with a total limb movement index of 3.3. During the treatment portion of the study, the patient had 13 isolated limb movements with an index of 3.2. The patient had no periodic limb movements. The patient had a total of 13 limb movements with a total limb movement index of 3.2. Oximetry Data During the diagnostic portion of the study, the patient had an average oxygen saturation of 95% in wake with a minimum oxygen saturation of 89% and a maximum oxygen saturation of 99%. The patient had an average oxygen saturation of 91% in sleep with a minimum oxygen saturation of 75% and a maximum oxygen saturation of 98%. The patient had 19 oxygen desaturations resulting in an Oxygen Desaturation Index of 7.8. The patient spent 9.3 minutes, 5% of total sleep time with an oxygen saturation less than 88%. During the treatment portion of the study, the patient had an average oxygen saturation of 94.8% in wake with a minimum oxygen saturation of 86% and a maximum oxygen saturation of 98%. The patient had an average oxygen saturation of 92.6% in sleep with a minimum oxygen saturation of 88% and a maximum oxygen saturation of 98%. The patient had 17 oxygen desaturations resulting in an Oxygen Desaturation Index of 4.2. The patient spent 0.4 minutes, 0.1% of total sleep time with an oxygen saturation less than 88%. Snoring Profile Snoring was mild to moderate, eliminated at the optimal pressure. Cardiac Profile During the diagnostic portion of the study, the EKG showed normal sinus rhythm. The average pulse rate was 69 bpm. The minimum pulse rate was 64 bpm. The maximum pulse rate was 80 bpm. No arrhythmias noted. During the treatment portion of the study, the EKG showed normal sinus rhythm. The average pulse rate was 68 bpm. The minimum pulse rate was 61 bpm. The maximum pulse rate was 87 bpm. No arrhythmias noted. EEG Profile Unremarkable, no evidence of seizures. Assessment and Plan Assessment and Plan (1) Obstructive sleep apnea: Code(s): G47.33 - Obstructive sleep apnea (adult) (pediatric) Status: Acute Assessment and Plan: This split night sleep study on 05/08/2025 shows overall mild obstructive sleep apnea, the apnea-hypopnea index is 7.8 with desaturation to 75%, worse in the supine position with mild to moderate snoring. Treatment was successful using a medium ResMed AirFit N20 nasal mask with heated humidity an optimal pressure of CPAP 12 cm. At CPAP 12 cm, the patient spent 63.5 minutes in bed, 26.5 minutes awake, 25.5 minutes in non-REM and 11.5 minutes in REM. Sleep efficiency was 58.3%. The residual apnea-hypopnea index was 1.6 and the lowest saturation was 90%. Supine REM occurred at this setting although was fragmented. The patient should be prescribed this ResMed equipment as well as tubing, filters and reservoir. This should be used with all episodes of sleep. Compliance should be reviewed within 31-90 days of starting therapy for usage greater than 4 hours per night greater than 70% of the nights. The patient should be asked about symptoms such as excessive daytime sleepiness, quality of sleep, decreased nocturia, increased mental functioning such as memory, mood, and concentration. BMI ix 45. Weight management is advised. Clinical data suggests that weight loss of 10% can reduce the severity of respiratory events and snoring and improve AHI by as much as 25%. Data The data obtained during this sleep study is adequate for interpretation. Certification This sleep study has been reviewed by a board certified sleep medicine physician.
[2025-06-04 20:43] VITALS: BMI 45.1
== END 2025-05-09 06:34 | disposition home or self-care (01) ==
PROVIDERS: PCP Internal Medicine; Visit Provider Internal Medicine
DX: G47.33 Obstructive sleep apnea (adult) (pediatric) (principal)
CPT/HCPCS: 95811

== ENCOUNTER 2025-06-12 11:36 | Outpatient (CLI) | payer MEDICARE, SELFPAY ==
--- OUTSIDE RECORDS SUMMARY | 2025-06-12 12:53 | XMS_ITS | Clinical Summary ---
Author Organization [facility] [employer] Address [address] [place] [address] Care Team Providers Care Unclaimed Property Officer Name Role Phone Rah Denis MD Primary Care Provider [phone] Source Comments [facility],non-owned Affiliates and Associated Physician Practices is amultiple site organization consisting of ambulatory clinics and hospital sitesin [place], [place], [place] and [place]. This disclosure is being madepursuant to the Care Everywhere program and may not contain all information available regarding this patient. Last updated 18.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 Gender Identity Not on file Sexual Orientation [...] CDT Office Visit [facility] [address] [place] [phone] Isatu Bey MD [address] [place] [address] Health Maintenance Due Date Last Done Comments [...] ZOSTER VACCINE (2 of 2) 08/18/2020 06/23/2020 DEPRESSION SCREENING 09/06/2024 SCREENING FOR DIABETES 01/11/2025 12/04/2019 COVID-19 VACCINE ( - season) 2025 03/01/2022, 08/17/2021, 11/12/2020 INFLUENZA VACCINE (#1) 2025 , 04/23/2020, 06/16/2019, [...] - 105 mg/dL 12/04/2019 10:24 AM CDT [facility] Sodium 140 136 - 145 mmol/L 12/04/2019 10:24 AM CDT [facility] Potassium 4.9 3.5 - 5.1 mmol/L 12/04/2019 10:24 AM CDT [facility] Chloride 106 98 - 107 mmol/L 12/04/2019 10:24 AM CDT [facility] CO2 23 23 - 31 mmol/L 12/04/2019 10:24 AM CDT [facility] Calcium 9.7 8.4 - 10.4 mg/dL 12/04/2019 10:24 AM CDT [facility] Anion Gap 11 8 - 16 mmol/L 12/04/2019 10:24 AM CDT [facility] BUN 25(H) 9.8 - 20.1 mg/dL 12/04/2019 10:24 AM CDT [facility] Creatinine 1.01 0.57 - 1.11 mg/dL 12/04/2019 10:24 AM CDT [facility] Alkaline Phosphatase 42 40 - 150 U/L 12/04/2019 10:24 AM CDT [facility] ALT 28 0 - 61 U/L 12/04/2019 10:24 AM CDT [facility] AST 28 5 - 34 U/L 12/04/2019 10:24 AM CDT [facility] Protein Total 7.6 6.4 - 8.3 gm/dL 12/04/2019 10:24 AM CDT [facility] Albumin 4.3 3.2 - 4.6 gm/dL 12/04/2019 10:24 AM CDT [facility] Bilirubin Total 1.0 0.2 - 1.0 mg/dL 12/04/2019 10:24 AM CDT [facility] eGFR by MDRD 56(L) >60 mL/min/1.7 3m2 12/04/2019 10:24 AM CDT [facility] eGFR by MDRD >60 >60 mL/min/1.7 3m2 12/04/2019 10:24 AM CDT [facility] Blood BLOOD SPECIMEN / Unknown Venipuncture / Unknown 12/04/2019 9:37 AM CDT 12/04/2019 9:51 AM CDT Isatu Bey MD LAB - CHEMISTRY ORDERABLES Final Result Performing Organization Address City/State/[facility] Co de Phone Number [facility] [address] [place] [address] from Last 3 Months or Most Recently Relevant to Health Maintenance Insurance MEDICARE MEDICARE SUPPLEMENT PAYOR GENERIC Care Teams Unclaimed Property Officer Relationship Specialty Start Date End Date Rah eDnis MD [address] [facility] [address] [place] [phone] PCP - General 11/28/19
[2025-06-12 13:01] LABS: Hematocrit 43.2 % (37.0-47.0); Hemoglobin 14.0 g/dL (12.0-15.0); Immature Granulocyte Percent A 0.3 % (0-0.5); Lymphocytes Absolute Auto 2.51 K/mm3 (0.9-3.2); Mean Corpuscular HGB Conc 32.4 g/dl (32-36); Mean Corpuscular Hemoglobin 31.0 pg (26-34); Mean Corpuscular Volume 95.6 fl (80-100); Nucleated Red Blood Cells Absolute Auto 0.000 K/mm3 (0.0-0.012); Nucleated Red Blood Cells Perc 0.0 % (0.0-0.2); Platelet Count Result 175 k/mm3 (150-375); Red Blood Count 4.52 M/mm3 (4.2-5.4); White Blood Count 5.9 K/mm3 (4.5-10.0)
[2025-06-12 13:17] LABS: Anion Gap 4 mmol/L (4-12); Blood Urea Nitrogen 19 mg/dL (7-17); Calcium 9.6 mg/dL (8.4-10.2); Carbon Dioxide 27 mmol/L (22-30); Chloride 104 mmol/L (98-107); Cholesterol 122 mg/dL (0-200); Estimated Glomerular Filt Rate > 60; Glucose 111 mg/dL (65-110); HDL Direct 42 mg/dL; Potassium 4.0 mmol/L (3.4-5.0); Sodium 135 mmol/L (137-145); Triglycerides 86 mg/dL (<150)
[2025-06-12 13:35] LABS: Free T4 Free Thyroxine 1.75 ng/dL (0.78-2.19)
[2025-06-12 13:53] LABS: Thyroid Stimulating Hormone 1.240 uIU/mL (0.465-4.680)
[2025-06-12 16:21] LABS: Hemoglobin A1C 6.1 % (<5.7)
== END 2025-06-12 11:37 | disposition home or self-care (01) ==
PROVIDERS: PCP Internal Medicine; Visit Provider Internal Medicine
DX: E78.2 Mixed hyperlipidemia (principal); E03.9 Hypothyroidism, unspecified; R73.03 Prediabetes; I10 Essential (primary) hypertension
CPT/HCPCS: 36415; 80048; 80061; 83036; 84439; 84443; 85025